=== PATIENT | female | born 1945 | race Caucasian/White ===

== ENCOUNTER 2019-03-01 16:39 | Inpatient (IN) ==
[2019-03-01] MEDS ORDERED: ASPIRIN PO ONE (16:48)
--- NOTE | 2019-03-01 16:57 | EKG Report ---
Test Performed on : 03/01/2019 4:53:11 PM Test Reason : cp Blood Pressure : / mmHG Vent. Rate : 058 BPM Atrial Rate : 058 BPM P-R Int : 168 ms QRS Dur : 088 ms QT Int : 440 ms P-R-T Axes : 072 075 073 degrees QTc Int : 431 ms Sinus bradycardia. Possible Left atrial enlargement Left ventricular hypertrophy Abnormal ECG When compared with ECG of 05-DEC-2012 16:13, ST no longer elevated in Inferior leads ST no longer depressed in Anterolateral leads T wave inversion no longer evident in Anterolateral leads Unconfirmed Result
[2019-03-01] MEDS ORDERED: NITROGLYCERIN TOP ONE (17:04)
[2019-03-01 17:33] LABS: BASO# 0.04 X1000 (0.0-0.2); BASO% 0.3 % (0.0-0.8); EOS# 0.24 X1000 (0.0-0.7); HEMATOCRIT 48.4 % (37.0-47.0); HEMOGLOBIN 16.8 g/dL (12.0-16.0); IMM GRAN# 0.03 X1000 (0.0-0.04); IMM GRAN% 0.2 % (0.0-0.5); LYMPH% 31.6 % (20.5-51.1); MCH 31.8 PG (27-31); MCHC 34.7 g/dL (33-37); MCV 91.7 FL (81-99); MONO# 1.01 X1000 (0.11-0.59); MONO% 8.4 % (1.7-9.3); MPV 12.5 FL (7.4-10.4); NEUT# 6.89 X1000 (1.4-6.5); NEUT% 57.5 % (42.2-75.2); PLT 162 X1000 (130-400); RBC 5.28 XMIL (4.2-5.4); RDW 12.9 % (11.5-14.5); WBC 12.01 X1000 (4.8-10.8)
--- NOTE | 2019-03-01 17:36 | Diag Imaging Result Doc PS360 ---
EXAM: CHEST-2 VIEWS HISTORY: CP TECHNIQUE: Chest two views COMPARISON: None. FINDINGS: The lungs are hyperexpanded. The heart is not enlarged. The vessels are not distended. There are no infiltrates. No pleural effusions. IMPRESSION: Hyperexpanded lungs. Electronically signed by Osvaldo Sanchez 03/01/2019 5:34 PM
[2019-03-01 17:42] LABS: PROTIME 13.3 Seconds (11.0-16.0)
[2019-03-01 17:43] LABS: PTT 29.4 Seconds (22.3-41.8)
[2019-03-01 17:57] LABS: AGAP 13; ALBUMIN 4.3 g/dL (3.5-5.0); ALKALINE PHOSPHATASE 70 U/L (32-104); BUN 17 mg/dL (8-22); CALCIUM 8.8 mg/dL (8.8-10.2); CHLORIDE 106 mmol/L (98-107); COSMO 283; CREATININE 0.8 mg/dL (0.5-0.9); ESTIMATED GFR > 60; GLUCOSE 97 mg/dL (70-104); GOT 17 U/L (10-30); GPT 14 U/L (10-36); POTASSIUM 4.1 mmol/L (3.5-5.1); SODIUM 141 mmol/L (136-145); TCO2 22 mmol/L (25-35); TOTAL BILIRUBIN 0.22 mg/dL (0.20-1.00); TOTAL PROTEIN 6.4 g/dL (6.3-8.3)
[2019-03-01 18:04] LABS: CK PROFILE 197 U/L (24-173)
--- NOTE | 2019-03-01 18:24 | PROVIDER DOCUMENTATION ---
This chart was entered by Micki Hong Scribe, acting as scribe for Elliott Marin MD. HPI-Chest Pain - General Chief Complaint: Chest Pain Stated Complaint: CHEST PAIN Time Seen by Provider: 03/01/19 16:47 Source: patient Allergies/Adverse Reactions: Patient Allergies Allergy/AdvReac Type Severity Reaction Status Date / Time amoxicillin trihydrate * Allergy Severe RASH Verified 09/22/13 10:09 [From Amoxil] cortisone [Cortisone] Allergy Severe RASH Verified 09/22/13 10:09 Penicillins Allergy Mild NAUSEA Verified 09/22/13 10:09 pantoprazole Allergy ANAPHYLAXIS Verified 09/22/13 10:09 Home Medications: Home Medication List Medication Instructions Recorded Confirmed Last Taken Type Aspirin 81 mg PO DAILY 09/22/13 09/22/13 09/22/13 08:30 History Bisoprolol [Zebeta] 10 mg PO DAILY 09/22/13 09/22/13 09/22/13 08:30 History PRAVAstatin [Pravachol] 10 mg PO DAILY 09/22/13 09/22/13 09/21/13 20:30 History Prasugrel HCl [Effient] 5 mg PO DAILY 09/22/13 09/22/13 09/22/13 08:30 History - History of Present Illness-CP Nature of Presenting Problem: 73 y/o female presents to ED with intermittent, tight/pressure-like, sternal chest pain radiating to L arm, SOB, and fatigue with sudden onset last night. Pt reports she has been under a lot of stress recently. Pt states she has hx ME. Pt reports she took aspirin and lisinopril last night at the onset of symptoms and they subsided. Pt states her symptoms came back and were worse this morning, so she took aspirin, lisinopril, and nitro and her symptoms subsided again. Pt reports she is not having any pain at this time. Pt is alert and oriented. Location: reports: central Chest Pain Radiation: reports: arms (L) Quality of Pain: reports: pressure, tightness Severity in ED: moderate Onset/Duration: last night Timing: gone now Context/Activities at Onset: reports: none Modifying Factors: improves with: other medication (aspirin, lisinopril, nitro) Associated Symptoms: reports: fatigue, shortness of breath Nitro Today/Relief: 0.4 mg x 1, provided at home, complete relief Aspirin Treatment Today: 81 mg x 2, provided at home Prior Chest Pain/Cardiac Workup: reports: heart attack Similar Symptoms Previously?: Yes Recently Seen Here or By Another Healthcare Provider: No Review of Systems - Adult - REVIEW OF SYSTEMS - ADULT Constitutional: reports: reyes. denies: chills, fever Eyes: reports: no symptoms reported Ears, Nose, Mouth & Throat: reports: no symptoms reported Cardiovascular: reports: chest pain. denies: palpitations Respiratory: reports: shortness of breath. denies: cough Gastrointestinal: denies: abdominal pain, diarrhea, nausea, vomiting Genitourinary: reports: no symptoms reported Musculoskeletal: denies: back pain, joint pain Integumentary: reports: no symptoms reported Neurological: denies: dizziness/vertigo, seizure Psychiatric: reports: no symptoms reported Endocrine: reports: no symptoms reported Hematologic/Lymphatic: reports: no symptoms reported Allergic/Immunologic: reports: no symptoms reported All Other Systems: Reviewed and Negative Past History - Adult - PAST MEDICAL HISTORY-ADULT Review of Records: reports: Old Records Reviewed, Nursing Assessment Review, Medications Reviewed Major Childhood Illnesses: reports: denies history Cardiovascular: reports: HTN, hyperlipidemia, ME Gastrointestinal: reports: GERD - PRIOR SURGERIES/PROCEDURES Surgical/Procedure History: reports: cardiac stent, hysterectomy - IMMUNIZATION STATUS Childhood Immunizations: See Nurse Assessment Flu Vaccine: See Nurse Assessment - FAMILY HISTORY Family History: reviewed, not pertinent - SOCIAL HISTORY Smoking: less than 1 pack/day Provider spent 3-5 mins advising pt. on dangers of tobacco.: Discussed manners to quit use, and f/u contacts for add'l counseling. Substance Use: none/never Alcohol Use Frequency: never Living Situation: family Physical Exam-General - PHYSICAL EXAM-ADULT Initial Vital Signs Reviewed: Yes - CONSTITUTIONAL General Appearance: appears well, alert, no apparent distress - EYES Eyes: PERRL/EOMI, pink conjunctivae - HEAD, EARS, NOSE, MOUTH & THROAT HENMT: normocephalic/atraumatic, moist mucous membranes, normal ENT inspection - NECK Neck: non-tender, full range of motion - RESPIRATORY Respiratory: chest non-tender, normal breath sounds, rhonchi (rare), wheezing (expiratory) - CARDIOVASCULAR Cardiovascular: normal peripheral pulses, regular rate, rhythm - GASTROINTESTINAL (ABDOMEN) Abdominal Exam: normal bowel sounds, non tender, soft - MUSCULOSKELETAL Back Exam: normal inspection, no CVA tenderness, no vertebral tenderness Extremity: normal range of motion, non-tender - SKIN Integumentary: normal color, warm/dry - NEUROLOGIC Neurologic: grossly normal - PSYCHIATRIC Psych/Mental Status: normal mood/affect, normal thought content, normal thought process, oriented x 3 - HEART Score HEART Score: History: Highly Suspicious HEART Score: ECG: Non-Specific Repolarization Disturbance/LBBB/PM HEART Score: Age: > or = 65 Years HEART Score: Risk Factors for Atherosclerotic Disease: > or = 3 Risk Factors or History of Atherosclerotic Disease HEART Score: Troponin: < or = Normal Limit Total HEART Score:: 7 Progress - PLAN OF CARE/RESULTS Progress/Plan/Lab Results: Vital Signs - 8 hr 03/01/19 17:16 Temperature 98.2 F Pulse Rate 55 L Respiratory Rate 18 Blood Pressure 145/75 O2 Sat by Pulse Oximetry 98 Laboratory Results - last 24 hr 03/01/19 03/01/19 03/01/19 17:05 17:05 17:05 WBC 12.01 H RBC 5.28 Hgb 16.8 H Hct 48.4 H MCV 91.7 MCH 31.8 H MCHC 34.7 RDW Std Deviation 12.9 Plt Count 162 MPV 12.5 H Immature Gran % (Auto) 0.2 Neut % (Auto) 57.5 Lymph % (Auto) 31.6 [place] % (Auto) 8.4 Eos % (Auto) 2.0 Baso % (Auto) 0.3 Immature Gran # (Auto) 0.03 Neut # (Auto) 6.89 H Lymph # (Auto) 3.80 H [place] # (Auto) 1.01 H Eos # (Auto) 0.24 Baso # (Auto) 0.04 PT 13.3 INR 1.00 PTT (Actin FS) 29.4 Sodium 141 Potassium 4.1 Chloride 106 Carbon Dioxide 22 L Anion Gap 13 BUN 17 Creatinine 0.8 Estimated GFR/1.73 m2 > 60 BUN/Creatinine Ratio 21 Glucose 97 Calculated Osmolality 283 Calcium 8.8 Total Bilirubin 0.22 AST 17 ALT 14 Alkaline Phosphatase 70 Creatine Kinase 197 H Troponin T Total Protein 6.4 Albumin 4.3 Globulin 2.1 Albumin/Globulin Ratio 2.0 03/01/19 17:05 WBC RBC Hgb Hct MCV MCH MCHC RDW Std Deviation Plt Count MPV Immature Gran % (Auto) Neut % (Auto) Lymph % (Auto) [place] % (Auto) Eos % (Auto) Baso % (Auto) Immature Gran # (Auto) Neut # (Auto) Lymph # (Auto) [place] # (Auto) Eos # (Auto) Baso # (Auto) PT INR PTT (Actin FS) Sodium Potassium Chloride Carbon Dioxide Anion Gap BUN Creatinine Estimated GFR/1.73 m2 BUN/Creatinine Ratio Glucose Calculated Osmolality Calcium Total Bilirubin AST ALT Alkaline Phosphatase Creatine Kinase Troponin T < 0.010 Total Protein Albumin Globulin Albumin/Globulin Ratio Orders Category Date Time Status Cardiac Monitoring DIRECTED Care 03/01/19 16:48 Active Oxygen Therapy- ED Nursing DIRECTED Care 03/01/19 16:48 Active Saline Loc NOW Care 03/01/19 16:48 Active CHEST-2 VIEWS [RAD] Stat Exams 03/01/19 16:48 Completed CBC WITH ELECTRONIC DIFF [HEME] Stat Lab 03/01/19 17:05 Completed CK PROFILE [SP CHEM] Stat Lab 03/01/19 17:05 Results COMPREHENSIVE METABOLIC PANEL [CHEM] Stat Lab 03/01/19 17:05 Results PRO B-NATRIURETIC PEPTIDE Stat Lab 03/01/19 17:05 Received PROTIME WITH INR [COAG] Stat Lab 03/01/19 17:05 Completed PTT [COAG] Stat Lab 03/01/19 17:05 Completed TROPONIN T Stat Lab 03/01/19 17:05 Completed Aspirin Med 03/01/19 16:48 Discontinued 325 mg PO NOW ONE Nitroglycerin Med 03/01/19 17:04 Discontinued 0.5 inch TOP NOW ONE CP/SOB/Palp >45 yrs of Age Stat Oth 03/01/19 16:48 Ordered EKG [EKG] Stat Ther 03/01/19 16:48 Draft Result Diagrams: 03/01/19 17:05 03/01/19 17:05 - REASSESSMENT Reassessment #1 Time Reassessed: 18:20 Status: improving (Given Nitropaste, CP free) - EKG 1 Time of EKG reading by physician:: 17:06 EKG Read and Signed by:: Elliott Marin EKG Interpretation (*Must complete 3 of following elements*): Abnormal Rate: 58 Rhythm: Sinus flako [place]ow: normal QRS: LVH, other (possible L atrial enlargement) [place] Interval: normal ST Wave: normal - XRAY 1 XRAY Study: Chest Impression: See EMR Report ([facility] - [address], [address], [place] [address] [facility] - [address] [place] [address] Department of Imaging Patient: LINA BARKLEY Date: 03/01/19MR#: [id number] : 6ADM Status: PRE ERAcct#: [id number] Age/Sex: 73/FRoom/Bed: Loc: ED Ordering Physician: Elliott Marin MD Family Physician: Lorenzo Mcclelland MD Reason for Procedure: CP Signed EXAM: CHEST-2 VIEWS HISTORY: CP TECHNIQUE: Chest two views COMPARISON: None. FINDINGS: The lungs are hyperexpanded. The heart is not enlarged. The vessels are not distended. There are no infiltrates. No pleural effusions. IMPRESSION: Hyperexpanded lungs. Electronically signed by Osvaldo Sanchez 03/01/2019 5:34 PM 03/01/19 173 Interpreting Physician: Osvaldo Sanchez MD Dictated Date/Time: 03/01/19 173 cc: Elliott Marin MD; Lorenzo Mcclelland MD) - CONSULTS/PCP/HOSPITALIST Notification #1 *Consult/PCP/Hospitalist*: RADHA Padron paged at [phone] Time Discussed: 18:23 Consult Disposition: Will see in ED #2 Consult: Phillip Knox MD paged at [phone] Consult Disposition: other (will see) Departure - Departure Date of Disposition Decision: 03/01/19 Time of Disposition Decision: 18:23 DIAGNOSIS: Unstable angina pectoris due to coronary arteriosclerosis, Tobacco use disorder Disposition: ADMITTED INPATIENT 09 Certified Medical Emergency: Emergent Condition: Fair Referrals and Follow-Ups: Lorenzo Mcclelland MD [Primary Care Provider] - Discharge Education: Steps to Quit Smoking, [id number] - Critical Care Note This patient required my direct & personal management of CC.: No Attestation - Physician/ ROBERT Attestation Patient care was provided by Advanced Practice Provider:: No The physician spent face to face time with patient:: Yes Advanced Practice Provider documentation review:: Supervising physician onsite and consulted in the evaluation and care of this patient. The physician did have a face to face encounter with the patient. This chart was documented by the indicated scribe, (Micki Hong, Diane) and accurately reflects the services I performed and decisions made by me, Elliott Marin MD, as attested by the provider's signature.
[2019-03-01 18:42] LABS: CK INDEX 4.6 (0.0-2.5); CK-MB 9.08 ng/mL (0.0-5.0)
[2019-03-01] MEDS ORDERED: DUONEB (A & A) INH PRN (21:10)
[2019-03-01] MEDS ORDERED: TYLENOL PO PRN (21:10)
[2019-03-01] MEDS: NITROGLYCERIN TOP SCH (22:25)
[2019-03-01] MEDS: LOVENOX SUBQ SCH (22:31)
[2019-03-02] MEDS: NITROGLYCERIN TOP SCH ×4 (04:25→22:27)
--- NOTE | 2019-03-02 05:06 | HISTORY AND PHYSICAL ---
CHIEF COMPLAINT: Chest pain. HISTORY OF PRESENT ILLNESS: A 73-year-old female presents to the emergency room after having intermittent chest pain since last night. She stated that it was a tight pressure like in sternum radiating into her left arm. She had shortness of breath and fatigue. Again, had sudden onset last night. Patient reports that she has recently been under a lot of stress. She does have a history of myocardial infarction back in 2012. She states that she took some aspirin and lisinopril last night and her symptoms subsided. They came back this morning and were worse. She took aspirin, lisinopril and nitroglycerin. Her symptoms again subsided. She at this time does not have any chest pain but felt as if she should come and get checked out. EKG shows sinus bradycardia with a rate of 58. CKs and troponins thus far have been negative, but the patient's calculated HEART score is 7. She will be admitted for further evaluation and treatment. PAST MEDICAL HISTORY: Hypertension, hyperlipidemia, myocardial infarction and GERD. PREVIOUS SURGICAL HISTORY: Cardiac stenting times 2, hysterectomy. SOCIAL HISTORY: Lives with family. Half a pack of tobacco. Has smoked for many years. Smoking cessation was gone over with the patient. She denies wanting to quit at this time. No alcohol or illicit drugs. FAMILY HISTORY: Positive for coronary artery disease and open heart surgery in her mother. She recently had a CVA. Also, her father and brother had small cell lung cancer. Her paternal grandfather also had coronary artery disease. ALLERGIES: Amoxicillin, cortisone, penicillin and pantoprazole. HOME MEDICATION: Lisinopril 10 mg p.o. b.i.d., bisoprolol 10 mg p.o. daily, aspirin 325 p.o. daily. REVIEW OF SYSTEMS: Fourteen point review of systems conducted with the patient. Pertinent positives listed above in the HPI. All other systems reviewed and found to be negative. PHYSICAL EXAMINATION: VITAL SIGNS: Temperature 97.4, pulse 57, respirations 20, blood pressure 153/74, oxygen saturation 94% on room air. GENERAL: A 73-year-old female awake, alert and oriented times 3. Answers all questions appropriately. HEENT: Head is atraumatic, normocephalic. Pupils equal, round, reactive to light. Extraocular eye movement is intact. Sclerae is anicteric. Conjunctivae is pink. Oral mucosa is moist. NECK: Supple. No JVD. No thyromegaly. Trachea is midline. No cervical lymphadenopathy. CARDIAC: S1, S2 appreciated. No murmurs, gallops, rubs. LUNGS: Scattered rhonchi throughout the lung victoria. Wheezing on expiration. Symmetrical rise and fall with respirations. ABDOMEN: Soft, nondistended, nontender. Bowel sounds present all 4 quadrants, normoactive. No pulsatile mass. No organomegaly. EXTREMITIES: No clubbing, cyanosis or edema. Two-plus pedal pulses bilaterally. GENITOURINARY: No bladder distention. Patient voids. Otherwise deferred. NEUROLOGICAL: Awake and alert. Oriented times 3. No focal motor deficits. Otherwise nonfocal examination. DIAGNOSTIC DATA: Chest x-ray shows chronic COPD changes. LABORATORY DATA: WBC 12.01. Hemoglobin 16.8. Hematocrit 48.4. Platelet count 162. Coagulation studies within normal limits. Sodium 141. Potassium 4.1. Chloride 106. Carbon dioxide 22. BUN 17. Creatinine 0.8. Glucose 97. CK 162. Troponin less than 0.010. ASSESSMENT AND PLAN: 1. Chest pain, rule out acute myocardial infarction. Trend cardiac enzymes. Check a direct lipid profile. Lexiscan for tomorrow morning. Consult Dr. Phillip Knox. We will start atorvastatin 40 mg p.o. q.h.s. Continue her aspirin and Effient. We will give nitroglycerin 0.5 inch topically q.6 hours. 2. Chronic obstructive pulmonary disease. Patient does not appear to be having an acute exacerbation. Smoking cessation was gone over with the patient. We will give DuoNebs q.4 hours p.r.n. 3. Hypertension. Continue home medications. 4. Hyperlipidemia. Start atorvastatin. Further recommendations per patient clinical course. Dictated by ARDHA Tom for Jamie Mata MD I have performed a face to face diagnostic evaluation. Labs/ xrays- reviewed. Exam- Chest- clear, CV- regular. A/P- Chest Pain- Admit, cardiac work up, cardiology consult. Dr. Mata cc: RADHA Tom MD [facility], MD [facility]
[2019-03-02 05:37] LABS: BASO# 0.04 X1000 (0.0-0.2); BASO% 0.4 % (0.0-0.8); EOS# 0.26 X1000 (0.0-0.7); EOS% 2.4 % (0.0-10.0); HEMATOCRIT 49.1 % (37.0-47.0); HEMOGLOBIN 16.5 g/dL (12.0-16.0); IMM GRAN# 0.02 X1000 (0.0-0.04); IMM GRAN% 0.2 % (0.0-0.5); LYMPH# 3.61 X1000 (1.2-3.4); MCHC 33.6 g/dL (33-37); MCV 92.3 FL (81-99); MONO# 0.98 X1000 (0.11-0.59); MONO% 9.2 % (1.7-9.3); MPV 12.4 FL (7.4-10.4); NEUT# 5.71 X1000 (1.4-6.5); NEUT% 53.8 % (42.2-75.2); PLT 144 X1000 (130-400); RBC 5.32 XMIL (4.2-5.4); RDW 13.1 % (11.5-14.5); WBC 10.62 X1000 (4.8-10.8)
[2019-03-02 05:44] LABS: AGAP 9; BUN 17 mg/dL (8-22); CALCIUM 8.6 mg/dL (8.8-10.2); CHLORIDE 104 mmol/L (98-107); COSMO 278; CREATININE 0.7 mg/dL (0.5-0.9); ESTIMATED GFR > 60; GLUCOSE 107 mg/dL (70-104); POTASSIUM 3.6 mmol/L (3.5-5.1); SODIUM 138 mmol/L (136-145); TCO2 25 mmol/L (25-35)
--- NOTE | 2019-03-02 07:31 | EKG Report ---
Test Performed on : 03/02/2019 06:57:25 AM Test Reason : cp Blood Pressure : / mmHG Vent. Rate : 057 BPM Atrial Rate : 057 BPM P-R Int : 174 ms QRS Dur : 090 ms QT Int : 462 ms P-R-T Axes : 077 068 057 degrees QTc Int : 449 ms Sinus bradycardia. Biatrial enlargement Abnormal ECG When compared with ECG of 01-MAR-2019 16:53, (Unconfirmed) No significant change was found Confirmed by Daniel Cisneros MD ([id number]) on 03/05/2019 9:31:10 PM
[2019-03-02] MEDS ORDERED: ZEBETA PO SCH (09:00)
[2019-03-02] MEDS ORDERED: ASPIRIN PO SCH ×2 (09:00)
[2019-03-02] MEDS ORDERED: EFFIENT PO SCH (09:00)
[2019-03-02] MEDS ORDERED: PRAVACHOL PO SCH (09:00)
[2019-03-02] MEDS: PRINIVIL PO SCH ×2 (10:08→20:23)
--- NOTE | 2019-03-02 10:43 | CARDIOLOGY CONSULTATION ---
DATE: 03/02/2019 REASON FOR CONSULTATION: Cardiology was consulted for chest pain. HISTORY OF PRESENT ILLNESS: Ms. King is a 73-year-old lady with known coronary artery disease, is followed by our service at [facility], has had stent placement to the ramus and right coronary artery in 2012. Has been doing well until a couple of days ago, when she started experiencing pain in her left arm and left side of her chest that woke her up from sleep as well. It continued for approximately 45 minute. She took 2 aspirins; no relief initially and then it quit. She had a 2nd event again, and she came to the emergency room, was admitted. Electrocardiogram revealed normal sinus rhythm. There were no acute ST-T changes to suggest ischemia. Cardiac enzymes x2 were negative. REVIEW OF SYSTEM: GI system: There is no history of nausea, vomiting, diarrhea. There is no history of hematemesis or melena. Central nervous system: No focal weakness to suggest a CVA or TIA. system: There is no dysuria or hematuria. PAST MEDICAL HISTORY: 1. 01/02/2013 patient had staged PCI to the ramus and RCA was dominant, had previous stent placed which was patent. Circumflex proximal had 60% stenosis. The LAD had mild luminal irregularities. 2. History of myocardial infarction in the past. 3. Hypertension, hyperlipidemia, tobacco abuse, hysterectomy. 4. She is , lives at home with family. Positive for tobacco half a pack of day for years. There is no history of alcohol abuse. PHYSICAL EXAMINATION: Vital Signs: On examination, blood pressure was 160/63. Cardiovascular System: Normal jugular venous pressure. There is no thyromegaly. No carotid bruit. First and second heart sounds were heard. There was no S3 gallop. Respiratory System: Normal air entry. There are no crepitations or rhonchi. Abdomen: Soft, nontender. There was no guarding or rigidity. Bowel sounds were heard. Central nervous system: Alert and was moving all 4 extremities. Extremities: Examination of extremities revealed no pedal edema. HEENT: Atraumatic, normocephalic. Pupils were equal and reacting to light. LABS: Sodium 138, potassium 3.6, BUN 17, creatinine 0.3. Cardiac enzymes were negative. ASSESSMENT AND PLAN: 1. Ms. Maria Ines King is a 73-year-old lady with known history of hypertension, myocardial infarction in the past, coronary artery disease, status post stent placement to right coronary artery and the ramus intermedius. She comes with complaints of recurrent episodes of chest pain. Patient has been ruled out for myocardial infarction. She has unstable angina. Given this, I have recommended that she undergo left heart catheterization. Risks, benefits, and alternatives were explained. Patient will be set up for left heart catheterization today. 2. For hypertension, continue with her home medication of lisinopril. She takes aspirin. I have not made any changes. 3. Hyperlipidemia. She is on pravastatin, Zebeta. I have not made any changes to her medications. Thanks for the consult. We will follow hospital course. cc: Mark Fowler MD
[2019-03-02] MEDS ORDERED: HEPARIN 1000 UNITS/NS 2,000 UNIT/1,000 ML IV.SOLN ONE (11:52)
[2019-03-02] MEDS ORDERED: NITROGLYCERIN ONE (11:52)
[2019-03-02] MEDS ORDERED: XYLOCAINE 1% ONE (11:53)
[2019-03-02] MEDS ORDERED: DILAUDID ONE (12:55)
[2019-03-02] MEDS ORDERED: VERSED ONE (12:55)
[2019-03-02] MEDS ORDERED: ANESTHESIA PB SET 88 IN 5742 ONE (12:55)
[2019-03-02] MEDS ORDERED: CLAVE TWINSITE 32 IN 11959 ONE (12:55)
[2019-03-02] MEDS ORDERED: NS 1,000 ML ONE (12:56)
[2019-03-02] MEDS: ZOFRAN IV PRN ×2 (14:18→20:23)
--- NOTE | 2019-03-02 14:33 | CARDIAC CATH REPORT ---
PROCEDURE NAME: - INDICATION: Coronary disease. Symptoms concerning for unstable angina. PROCEDURES PERFORMED: 1. Left heart catheterization. 2. Selective coronary angiography. PROCEDURE IN DETAIL: Ms. King was brought to the catheterization laboratory in a fasting state. Informed consent was obtained. Prepped in usual fashion. She was anesthetized over the right radial after Dre's test proved adequate. A 5-Irish sheath was placed using true Seldinger technique. Radial cocktail was administered. Catheters were introduced with hemodynamic measurements made in the ascending and thoracic aorta. Coronary angiography was performed in multiple views using JL3.5 and JR4 diagnostic catheters. Left heart catheterization was performed using the JR4. IC nitroglycerin was administered down the right coronary. At the conclusion of the procedure, sheaths and catheters were removed. TR band was left inflated at 10 mL of air. Good capillary refill. BLOOD LOSS: 5-10 mL. IV CONTRAST: 90 mL. FINDINGS: 1. The left main has a distal 20% lesion. 2. Left anterior descending has a proximal 30% lesions with mid and distal vessels 10 to 20% lesions. 3. The circumflex has a proximal 60 to 70% lesion. There is an extremely high OM1 that appears to have a patent stent in it. There is diffuse 40 to 50% disease in the mid vessel of the main circumflex. 4. The right coronary has what appears to be calcified, severe hazy disease in the proximal vessel prior to a long area of stented segment. This stented segment has 20 to 30% disease scattered throughout. The distal vessel has severe 80% disease leading into a diffuse distal right coronary with 20 to 30% disease. The PDA is right- sided. 5. Aortic blood pressure 139/56 with a mean of 93. Left ventricle pressure 144/6 with an LVEDP of 13. ASSESSMENT: Ms. King is a 73-year-old female who presented with symptoms concerning for angina. She has had negative enzymes and a negative EKG. PLAN: I will discuss case with her primary steamfitter apprentice, Dr. Fowler, and consider possibly sending over to [place] for intervention. We have already discussed the films with the interventionalist there. The right coronary is amenable to intervention. cc: Phillip Knox MD [facility]PITALRufus
--- NOTE | 2019-03-02 16:10 | ECHO REPORT ---
ORDER DATE: 03/02/2019 INDICATION: Chest pain. FINDINGS: 1. Right atrium appears normal in size at 3.3 cm. 2. Mild tricuspid regurgitation. RV systolic pressure of 35. 3. Normal RV size and systolic function. 4. No significant pulmonic insufficiency. 5. Normal left atrial size with a dimension of 3.3 cm. 6. No mitral valve prolapse. Mild mitral regurgitation. No evidence of mitral stenosis. 7. Normal LV size, end-diastolic dimension of 5.2. Normal wall thicknesses with a posterior and interventricular septal wall thickness of 1 cm each. Normal LV systolic function. There is an estimated EF of 65% with normal wall motion. 8. Aortic valve opens well. It is trileaflet. No evidence of stenosis or insufficiency. 9. Aorta appears normal in visualized segments. 10. No pericardial effusion seen. cc: Phillip Knox MD
[2019-03-02] MEDS ORDERED: APRESOLINE PO PRN (16:11)
--- NOTE | 2019-03-02 17:28 | PROGRESS NOTE ---
DATE: 03/02/2019 INTERVAL HISTORY: Patient with no further chest pain. Troponins negative x3. Has ruled out for ND, but symptoms concerning for unstable angina. Taken to catheterization by Cardiology, which showed left main with a distal 20% lesion, LAD with a proximal 30% lesion, circumflex with proximal 60% to 70% lesion, right coronary with 20% to 30% disease throughout and distal 80% disease. No acute events overnight. No new complaints. REVIEW OF SYSTEMS: A 12 point review of systems negative except as per Interval History. LABORATORY DATA: WBC 10.6, hemoglobin 16.5, hematocrit 49.1, platelets 144,000. Basic metabolic panel unremarkable. Troponin negative x3. LDL 111, HDL 35. TSH 0.97. VITALS: Temperature maximum 98.2 degrees, pulse 65, respirations 20, blood pressure 158/60, O2 saturation 98% on room air. PHYSICAL EXAMINATION: General: No acute distress. Vitals: As above. HEENT: Normocephalic, atraumatic. Moist mucous membranes. No cervical adenopathy. Cardiovascular: Regular rate and rhythm. No murmurs noted. Pulmonary: Clear to auscultation bilaterally. No wheezing, rales, or rhonchi. Abdomen: Soft, nontender, nondistended. Bowel sounds positive. Extremities: Peripheral pulses intact. No clubbing or cyanosis. Neurologic: Cranial nerves grossly intact. No focal deficits identified. Psychiatric: Normal mood and affect. Awake, alert, oriented x3. Skin: No new rashes or lesions identified. Assessment and Plan: 1. unstable angina: troponins negative x 3, so patient ruled out for ND, but there is concern for unstable angina. cath results as above. cardiology considering transfer to [place] for definitive management. will await their final decision. 2. CAD: continue aspirin, additional meds as per cardiology 3. HTN: acceptable control on current regimen. 4. gerd: continue PPI 5. COPD: no sign of exacerbation. monitor. [facility]
[2019-03-02] MEDS: LOVENOX SUBQ SCH (20:23)
[2019-03-02] MEDS ORDERED: LIPITOR PO SCH (21:00)
[2019-03-03] MEDS: NITROGLYCERIN TOP SCH (04:42)
[2019-03-03 04:45] VITALS: BP 174/70
[2019-03-03 05:37] LABS: BASO# 0.03 X1000 (0.0-0.2); BASO% 0.3 % (0.0-0.8); EOS# 0.23 X1000 (0.0-0.7); EOS% 1.9 % (0.0-10.0); HEMATOCRIT 48.2 % (37.0-47.0); HEMOGLOBIN 16.6 g/dL (12.0-16.0); IMM GRAN# 0.02 X1000 (0.0-0.04); IMM GRAN% 0.2 % (0.0-0.5); LYMPH% 31.3 % (20.5-51.1); MCH 31.6 PG (27-31); MCHC 34.4 g/dL (33-37); MCV 91.6 FL (81-99); MONO% 8.5 % (1.7-9.3); MPV 12.4 FL (7.4-10.4); NEUT# 6.84 X1000 (1.4-6.5); NEUT% 57.8 % (42.2-75.2); PLT 156 X1000 (130-400); RBC 5.26 XMIL (4.2-5.4); WBC 11.82 X1000 (4.8-10.8)
[2019-03-03 06:01] LABS: AGAP 12; BUN 11 mg/dL (8-22); CALCIUM 8.9 mg/dL (8.8-10.2); CHLORIDE 103 mmol/L (98-107); COSMO 277; CREATININE 0.6 mg/dL (0.5-0.9); ESTIMATED GFR > 60; GLUCOSE 95 mg/dL (70-104); POTASSIUM 3.4 mmol/L (3.5-5.1); SODIUM 139 mmol/L (136-145); TCO2 24 mmol/L (25-35)
--- NOTE | 2019-03-03 21:05 | DISCHARGE SUMMARY ---
ADMISSION DATE: 03/01/2019 DISCHARGE DATE: 03/03/2019 DIAGNOSES: 1. Chest pain. 2. Chronic obstructive pulmonary disease. 3. Hypertension. 4. Hyperlipidemia. 5. Coronary artery disease. CONSULTATIONS: Dr. Phillip Knox, Cardiology. DIAGNOSTICS: 1. Chest x-ray revealed hyperexpanded lungs. 2. Echocardiogram revealed normal LV size, normal LV systolic function with an EF of 65% with normal wall motion. 3. Cardiac catheterization left main had a 20% distal lesion. Left anterior descending has proximal 30% lesions with mid and distal vessel 10 to 20 percent lesions. The circumflex has a proximal 60 to 70 percent lesion. There is extremely high OM1 and appears to have a patent stent. There is diffuse 40 to 50 percent disease in the mid vessel of the main circumflex. The right coronary artery has what appears to be calcified severe hazy disease. The stented segment has 20 to 30 percent disease scattered throughout. Distal vessel has severe 80% disease leading into a diffuse distal right coronary artery with 20 to 30 percent. PDA is right-sided. HOSPITAL COURSE: Ms. King presented to the emergency room complaining of chest pain that was concerning for angina. She ruled out by troponins. She underwent cardiac catheterization with Dr. Phillip Knox with results as stated above. She was ultimately discharged in transfer to [facility] for further care in stable condition with family members present. DISCHARGE MEDICATIONS AND FOLLOWUP: Will be per our discharge orders from Cardiology [facility]. She was discharged in transfer to [place] in stable condition via EMS transport. Dictated by RADHA Mcfarlane for Chi Paulino MD cc: RADHA Mcfarlane Agree with the above. the following is my own face to face assessment. heart: RRR currently. transferring to [place] for further cardiac intervention. [facility]
== END 2019-03-03 07:38 | disposition short-term general hospital (02) | DRG 287 ==
LOC: SUPCPDRO → ED 16:39 → SUATTDRO 20:41 → 3N 20:41 → 3S 03-02 14:14
PROVIDERS: ATTEND Internal Medicine